=== PATIENT | female | born 2000 | race Caucasian/White ===

== ENCOUNTER 2020-03-02 03:12 | Emergency (ER) | payer BC ==
[~2020-03-02] VITALS: Ht 170.2 cm; Wt 69.9 kg
[2020-03-02 03:12] VITALS: BP 128/94
[2020-03-02] MEDS ORDERED: LIDOCAINE VISCOUS 2% UD 15 ML UDC ONE (04:19)
[2020-03-02] MEDS ORDERED: MAG HYDROX/AL HYDROX/SIMETH 30 ML UDC ONE (04:19)
[2020-03-02] MEDS: LIDOCAINE VISCOUS 2% UD 15 ML UDC MM ONE ×2 (04:23→04:41)
[2020-03-02] MEDS: MAG HYDROX/AL HYDROX/SIMETH 30 ML UDC PO ONE ×2 (04:23→04:41)
== END 2020-03-02 04:42 | disposition home or self-care (01) ==
LOC: ER 03:15
DX: R07.89 Other chest pain (principal); F43.9 Reaction to severe stress, unspecified